=== PATIENT | female | born 1955 | race Caucasian/White ===

== ENCOUNTER → 2017-08-29 | Outpatient (CLI) | payer MEDICARE, MEDICAID ==
[~2017-08-29] MED LIST: BACTRIM DS 8001 TAB PO; BUSPAR5 MG PO; CHANTIX1 TAB PO; CITALOPRAM40 MG PO; CLINDAMYCIN HC300 MG PO; DIAZEPAM5 MG PO; DURAGESIC50 MCG/HR; DURAGESIC50 MCG/HR TD; ELAVIL25 MG; ELAVIL25 MG PO; FELODIPINE10 MG PO; FERROUS SULFAT325 M1 PO; FLEXERIL5 MG PO; FOLIC ACID 1MG T1 MG; GABAPENTIN 600600 MG PO; LEVOTHYROXINE0.15 MG PO; METHADONE HCL5 MG PO; NEURONTIN100 MG PO; PERCOCET 5/3251 EACH PO; SANTYL U EX; SPIRIVA HA1 PUFF/INH IH; STERAPRED5 MG PO; SYNTHROID0.3 MG PO; WARFARIN SODIUM1 MG PO; ZESTRIL 10MG TA10 MG; ZOCOR80 MG PO; [UNRECOGNIZED DRUG - OTHER] EX
--- NOTE | 2017-08-30 10:04 | RADIOLOGY REPORT PS360 ---
CHEST(2 VIEWS-NOT PORTABLE) HISTORY: Shortness of breath COPD ORDERING PHYSICIAN: Ariel Solares MD PATIENT AGE: 62 years COMPARISON: 11/10/2015 FINDINGS: The cardiomediastinal silhouette and pulmonary vascularity are within normal limits. Mild hyperinflation with attenuation of peripheral pulmonary vessels consistent with obstructive chronic bronchitis. Old granulomatous disease. No lobar consolidation or collapse.. No acute bony abnormalities. There are degenerative changes of the thoracic spine with multilevel osteophyte formation anteriorly IMPRESSION: 1. COPD. 2. No change with no acute finding
== END ==
LOC: RAD 10:31
DX: J44.1 Chronic obstructive pulmonary disease with (acute) exacerbation (principal)